=== PATIENT | male | born 1980 ===

== ENCOUNTER → 2018-12-27 | Outpatient (CLI) | payer OTHER ==
--- NOTE | 2018-12-27 17:21 | Diagnostic Imaging Report ---
PROCEDURE: MRI right lower extremity without contrast. TECHNIQUE: Multiplanar, multisequence non contrast-enhanced MRI of the right lower extremity was accomplished. INDICATION: Patient reported feeling pop medially in the calf on the right. FINDINGS: There is a high-signal T1 and T2 fluid collection deep to the medial gastrocnemius muscle and superficial to the soleus. This extends for approximately 50% of the length of the calf. This measures approximately 5.7 cm anterior to posterior and 1.2 cm in thickness and extends superior to inferior approximately 13 cm. There does appear to be a full-thickness tear of the plantaris tendon. The gastroc muscles appear intact. There is normal marrow signal within the tibia and fibula. IMPRESSION: Hematoma deep to the gastrocnemius muscle with findings suggesting a tear of the plantaris tendon. Dictated by: Dictated on workstation # [id number]
== END ==
LOC: RAD 16:16
PROVIDERS: ATTEND Nurse Practitioner
DX: S86.111A Strain of other muscle(s) and tendon(s) of posterior muscle group at lower leg level, right leg, initial encounter (principal); S80.11XA Contusion of right lower leg, initial encounter